=== PATIENT | male | born 1990 | race Caucasian/White ===

== ENCOUNTER 2024-10-28 14:53 | Outpatient (AMB) | payer OTHER, MEDICAID, SELFPAY ==
--- NOTE | 2024-10-28 14:54 | A.OFFPC_ITS ---
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 Care Intake Note: new patient to establish care Cupola Patcher Required: No Allergies No Known Allergies Allergy (Verified 10/28/24 15:17) Medication List - Last Reconciled 10/28/24 by Sylvia Kumar, DEALER SALES MANAGER-BC blood-glucose sensor (Dexcom G7 Sensor device) As directed celecoxib mg PO BID jqpzwozfhvw-fxgzommiru-fnnbcqn 100-50-75 mg(d) /150 mg (n) (Trikafta) ea PO ergocalciferol (vitamin D2) (Vitamin D2) PO QWEEK insulin aspart U-100 (Novolog U-100 Insulin aspart) subcut idbbdu-uuhaxiac-wlklonn 24,000-76,000 -120,000 unit (Creon) 5 caps PO TID bc-pu-ulkl-FA-vit Q-bylt-frU47 22.5 mg-400 mcg -500 mcg-10 mg (DEKAs Bariatric) tabs PO DAILY ursodiol mg PO BID Tobacco use date assessed: 10/28/24 Dental Screening Dental Screen Date: 10/28/24 Did you have a dental visit in the last 12 months?: No Did you have a dental problem in the last 6 months where you did not have access to dental care?: No Was dental information given to patient?: No HPI HPI Comments History of Present Illness Details 34 y/o M IDDM, Vit D def, MDD, Cystic Fi brosis, pancreatic exocrine deficiency, cholestatic liver disease, erectile dysfunction d/t arterial insufficiency, OA bilat hands, nasal polyps with recurrent sinusitis Surgery: Sinus and nasal polypectomy in 2018 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 He will ask for a repeat at next visit November. MDD: was on escitalopram stopped ran out and wondered if was causing memory issues. Stopped in August. Feels happier. Mild anxiety and irritability. Unsure if any impact on memory. HTN: at home 152/90 , not on agents; no chest pain. Numbness in pinky and ring finger on L started 5 years ago. Sx come and go. R hand dominant Jock itch - 2019, using OTC powders. Not using non-medicated powder; persistent jock itch history concurrent with previous athlete's foot, with inter-partner symptomology (UTIs). ROS: - Neurological: Reports memory decline o jalen several years. - Cardiovascular: Reports consistent hig h blood pressure. - Neuromuscular: Reports intermittent nu mbness in right-hand fingers. - Dermatological: Reports persistent anthony k itch. - Urinary: Reports partner?s UTIs post-i ntercourse. Results: a1c 7.2% Exam Awake alert NAD RRR LS CTAB LUE neurovasc intact, replication of sx in ring and pinky finger when L arm pulled behind torso and w/ compression over elbow. Tinea noted to bilat feet R>L Mood and affect appropriate Neuro exam w/o deficit Discussion I discussed the possibility of memory impairment being tied to untreated sleep apnea given the family history and presented stress factors. A sleep study referral was advised to provide clarity to be done by CF clinic. For his blood pressure readings, I introduced the prospect of commencing antihypertensive therapy, contingent on laboratory outcomes to verify renal function health. Regarding hand numbness, I recommended occupational therapy to alleviate possible neural compression; declined at this time. On dermatological concerns, including jock itch with potential athlete?s foot interaction, clotrimazole?s multifocal application was elaborated. A continuation of healthy lifestyle adaptations was advocated, supplemented by follow-up plans to monitor thorough assessment results. A&P 1. Memory Complaints: I advised that a s leep study may elucidate memory impairment causes, considering potentially untreated sleep apnea and ensuing chronicity. Labs will also cover thyroid activity and essential vitamin levels. 2. Hypertension: We concluded that prima ry intervention for hypertension via lisinopril awaits supporting lab findings. This modality offers dual function in hypertension control and nephroprotection. 3. L finger Numbness. This primary appro ach facilitates conservative management requirements prior to progressive escalation. 4. Jock Itch (Tinea Cruris): Courses for ongoing jock itch were communicated, focusing on treating confirmed fungal origin via clotrimazole application. Follo w-up will evaluate response. 5. 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 Total time spent caring for the patient today was 50 minutes. This includes time spent before the visit reviewing the chart, time spent during the visit, and time spent after the visit on documentation, reviewing laboratory results, diagnostic imaging, medications, performing a medically necessary evaluation, counseling on diagnoses, care coordination, ordering appropriate tests, ordering appropriate medications, review of tests performed by other providers, reporting test results with the patient, communication with other healthcare providers. [facility] Medical History (Updated 10/28/24 @ 18:[address] [facility]) Anxiety and depression Arthritis Diabetes Lung infection Sinusitis Surgical History (Updated 10/28/24 @ 15:13 by Dwayne Mcconnell MA) H/O sinus surgery History of colonoscopy (~1999) Family History (Updated 10/28/24 @ 15:15 by Dwayne Mcconnell MA) Mother HTN (hypertension) Father HTN (hypertension) Maternal Grandfather HTN (hypertension) Paternal Grandfather HTN (hypertension) Substance abuse Sister HTN (hypertension) Maternal Grandmother Diabetes Social History (Updated 10/28/24 @ 15:11 by Dwayne Mcconnell MA) Household Members: None Both parents involved: No Caregiver staying overnight: No Housing: House Are you a primary rn urgent care to a significant other at home: No Do you presently have visiting nurse or other home services: No 75 years or older and lives alone: No Alcohol intake: current Alcohol intake frequency: a few times a month Patient Tobacco Use Status: Never used Tobacco e-Cigarette/Vaping Use: Never Used Second Hand Smoke Exposure: No Current occupational status: employed 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 1. Little interest or pleasure in doing things: not at all 2. Feeling down, depressed, or hopeless: not at all 3. Trouble falling or staying asleep, or sleeping too much: several days 4. Feeling tired or having little energy: several days 5. Poor appetite or overeating: not at all 6. Feeling bad about yourself - or that you are a failure or have let yourself or your family down: not at all 7. Trouble concentrating on things, such as reading the newspaper or watching television: not at all 8. Moving or speaking so slowly that other people could have noticed. Or the opposite - being so fidgety or restless that you have been moving around a lot more than usual: not at all 9. Thoughts that you would be better off or of hurting yourself in some way: not at all Total score: 2 Depression Screening Interpretation: Negative Depression Screening Done: Yes 47891 - PHQ-9 Billing: Yes Source: Developed by Drs. Chucho Ratliff, Xochitl Pedraza, García Whitman and colleagues, with an educational katey from [employer]. Thrive Questionnaire Date Thrive assessed: 10/28/24 I am a: Patient What is your living situation today?: I have a steady place to live Within the past 12 months, did the food you bought not last and you didn't have the money to get more?: Sometimes True Within the past 12 months, did you worry whether your food would run out before you got money to buy more?: Sometimes True Do you have trouble paying for medicines?: Yes Do you have trouble getting transportation to medical appointments?: No Do you have trouble paying your heating and electricity bill?: Yes Do you have trouble taking care of your child, family member or friend?: No Do you have trouble with day-to-day activities such as bathing, preparing meals, shopping, managing finances, etc.?: No Are you currently unemployed and looking for a job?: No Are you interested in more education?: No Please select the resources that you would like help with: None Currently or been in a relationship where the following occur: No concerns reported THRIVE Score: 3 AUDIT C Alcohol Use Questionnaire (AUDIT-C) 1. How often do you have a drink containing alcohol?: Monthly or less 2. How many drinks containing alcohol do you have on a typical day when you are drinking?: 3 or 4 3. How often do you have six or more drinks on one occasion?: Less than monthly Total Score: 3 Score Reviewed/Action Taken: Yes ELIJAH-7 AMB Questionnaire ELIJAH-7 Date ELIJAH - 7 assessed: 10/28/24 Feeling nervous, anxious, or on edge: 1 = Several days Not being able to stop or control worryin = Several days Worrying too much about different things: 1 = Several days Trouble relaxin = Several days Being so restless that it is hard to sit still: 0 = Not at all Becoming easily annoyed or irritable: 1 = Several days Feeling afraid as if something awful might happen: 1 = Several days Total ELIJAH-7 score (0-4 normal; 5-9 mild; 10-14 moderate; 15-21 severe): 6 Source: Developed by Drs. Chucho Ratliff, Xochitl Pedraza, García Whitman and colleagues, with an educational katey from [employer]. ELIJAH-7 Assessment Billing ELJIAH-7 Assessment Tool: ELIJAH-7 Assessment 72808 Physical exam (Primary Care) Vital Signs: Last Vital Signs Temp 97.4 F 10/28/24 15:06 Pulse 80 10/28/24 15:40 Resp 13 10/28/24 15:06 BP 126/86 10/28/24 15:40 Pulse Ox 97 10/28/24 15:06 Oxygen Delivery Method Room Air 10/28/24 15:06 BMI result Body Mass Index 29.0 Tobacco/Smoking Status: Tobacco use Status Tobacco use date assessed 10/28/24 10/28/24 15:08 Patient Tobacco Use Status Never used Tobacco 10/28/24 15:11 e-Cigarette/Vaping Use Never Used 10/28/24 15:11 PHQ-9: PHQ-9 Score PHQ-9: Total score 2 10/28/24 15:33 Depression Screening Interpretation: Negative Thrive Assessment: Date of Thrive Assessment Date Thrive assessed 10/28/24 10/28/24 14:59 Currently or been in a relationship where the following occur: No concerns reported Results AMB Hemoglobin A1c AMB Hemoglobin A1c 7.2 % Last Edit by Dwayne Mcconnell MA on 10/28/24 15:18 Results Reviewed Results Reviewed: Laboratory Last Values Hgb A1c (Clinic) 7.2 % (4.0-6.0) H 10/28/24 15:04 Coding Level of Care Code New Pt Level 4 (98439) Complex EM visit Add On G2211 Diagnoses Type 1 diabetes mellitus with complication E10.8 Mild episode of recurrent major depressive disorder F33.0 Major depression episode severity: mild Vitamin D deficiency E55.9 Cystic fibrosis E84.9 Cholestatic liver disease K83.1 Erectile dysfunction due to arterial disease I77.9; N52.1 Pancreatic atrophy K86.89 Tinea pedis of both feet B35.3 Laterality: bilateral Tinea cruris B35.6 Hypertension due to endocrine disorder I15.2 Hypertension type: secondary to endocrine disorders 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: left Subjective memory complaints R41.89 Additional Codes ELIJAH-7 Assessment Billing - ELIJAH-7 Assessment Tool: ELIJAH-7 Assessment 62789 ([id number]) PHQ-9 - 36332 - PHQ-9 Billing: Yes ([id number]) Assessment & Plan Assessment & Plan (1) Type 1 diabetes mellitus with complication: Code(s): E10.8 - Type 1 diabetes mellitus with unspecified complications Category: Medical (2) MDD (major depressive disorder), recurrent episode: Code(s): F33.9 - Major depressive disorder, recurrent, unspecified Category: Medical Qualifiers: Major depression episode severity: mild Qualified Code(s): F33.0 - Major depressive disorder, recurrent, mild (3) Vitamin D deficiency: Code(s): E55.9 - Vitamin D deficiency, unspecified Category: Medical (4) Cystic fibrosis: Code(s): E84.9 - Cystic fibrosis, unspecified Category: Medical (5) Cholestatic liver disease: Code(s): K83.1 - Obstruction of bile duct Category: Medical (6) Erectile dysfunction due to arterial disease: Code(s): I77.9 - Disorder of arteries and arterioles, unspecified; N52.1 - Erectile dysfunction due to diseases classified elsewhere Category: Medical (7) Pancreatic atrophy: Comment: exocrine deficiency requires creon with meals and snacks managed by GI Code(s): K86.89 - Other specified diseases of pancreas Category: Medical (8) Tinea pedis: Code(s): B35.3 - Tinea pedis Category: Medical Qualifiers: Laterality: bilateral Qualified Code(s): B35.3 - Tinea pedis (9) Tinea cruris: Code(s): B35.6 - Tinea cruris Category: Medical (10) HTN (hypertension): Code(s): I10 - Essential (primary) hypertension Category: Medical Qualifiers: Hypertension type: secondary to endocrine disorders Qualified Code(s): I15.2 - Hypertension secondary to endocrine disorders (11) Ulnar nerve entrapment: Code(s): G56.20 - Lesion of ulnar nerve, unspecified upper limb Category: Medical Qualifiers: Laterality: left Qualified Code(s): G56.22 - Lesion of ulnar nerve, left upper limb (12) Subjective memory complaints: Code(s): R41.89 - Other symptoms and signs involving cognitive functions and awareness Category: Medical Plan . Orders: Orders AMB Hemoglobin A1c Today Z13.9 - Encounter for screening, unspecified Microalbumin, Random (w Creat) Today E10.8 - Type 1 diabetes mellitus with unspecified complications, E55.9 - Vitamin D deficiency, unspecified, E84.9 - Cystic fibrosis, unspecified, K83.1 - Obstruction of bile duct Comprehensive Met. Panel Today E10.8 - Type 1 diabetes mellitus with u nspecified complications, E55.9 - Vitamin D deficiency, unspecified, E84.9 - Cystic fibrosis, unspecified, K83.1 - Obstruction of bile duct Lipid Panel Today E10.8 - Type 1 diabetes mellitus with unspecified complications, E55.9 - Vitamin D deficiency, unspecified, E84.9 - Cystic fibrosis, unspecified, K83.1 - Obstruction of bile duct TSH reflex Free T4 Today E10.8 - Type 1 diabetes mellitus with unspecified complications, E55.9 - Vitamin D deficiency, unspecified, E84.9 - Cystic fibrosis, unspecified, K83.1 - Obstruction of bile duct Vitamin B12 and Folate Today E10.8 - Type 1 diabetes mellitus with unspecified complications, E55.9 - Vitamin D deficiency, unspecified, E84.9 - Cystic fibrosis, unspecified, K83.1 - Obstruction of bile duct Vitamin D 25-OH Total Today E10.8 - Type 1 diabetes mellitus with unspecified complications, E55.9 - Vitamin D deficiency, unspecified, E84.9 - Cystic fibrosis, unspecified, K83.1 - Obstruction of bile duct Complete Blood Count no Diff Today E10.8 - Type 1 diabetes mellitus with unspecified complications, E55.9 - Vitamin D deficiency, unspecified, E84.9 - Cystic fibrosis, unspecified, K83.1 - Obstruction of bile duct Medications: New clotrimazole 1% 1 appl topical BID 4 weeks 45 grams 5RF Patient Instructions: - Schedule and complete your sleep study as planned. - Use clotrimazole cream on your feet and groin as directed and ensure regular use. - Monitor your blood pressure at home and log results for review. - Consider occupational therapy for hand numbness relief. - Continue your healthy lifestyle, encompassing dietary vigilance and regular physical exercise. - Consult ophthalmology for diabetic eye care before November this year. - Verify Tdap vaccination status at your upcoming CF clinic visit. Walk-In Care (Urgent Care): We Make it Easy Walk-in for urgent medical issues such as: ? Seasonal Allergies ? Insect Bites ? Cough ? Diarrhea ? Acute Asthma Attacks ? Back, Knee or Joint Pain ? Ear Infection ? Fever without a Rash ? Headaches ? Nausea ? [place] [facility], Rash or Skin Irritation ? Sore Throat ? Sports Physicals ? Vomiting Most insurances are accepted. Patients do not need to be part of the [facility] to seek care at the walk-in clinic. Locations [facility] [address], [place] [address] ? [phone] [facility] [place] provides services to ages 18 and over. Open Saturday-Saturday: 8 a.m. to 5 p.m. and Saturday: 9 a.m. to 3 p.m.* *Hours may vary due to staffing availability. To confirm Walk-In Care hours in [place], please call [phone]. [address] [facility], [place] [address] ? [phone] [facility] in [place] provides services to ages 12 and over. Open Saturday-Saturday: 8 a.m. to 5 p.m. Hours may vary due to staffing availability. To confirm Walk-In Care hours in [place], please call [phone]. LABORATORY SERVICES: [facility] ? Primary Location [address] [place] [address] Saturday through Saturday 6:00 AM ? 5:00 PM Saturday 7:00 AM ? 11:00 AM* [phone] The [facility] is centrally located near the front entrance of the [facility] for easy outpatient access. Convenient parking is provided for outpatients. *Hours may vary due to staffing availability. To confirm Laboratory hours for a [place] location, please call [phone]. Offsite Location For your convenience, we offer offsite laboratory draw stations at the following locations: [address] [place] [address] ? [address], [address] Saturday through Saturday 7:30 AM ? 1:00 PM* [phone] *Hours may vary due to staffing availability. To confirm Laboratory hours for any location, please call [phone]. [place] ? [address] Saturday through Saturday 6:00 AM ? 3:30 PM* Saturday 6:30 AM ? 3 PM* [phone] *Hours may vary due to staffing availability. To confirm Laboratory hours for any location, please call [phone] [place] [address] Saturday through Saturday 7:30 AM ? 4:00 PM* [phone] *Hours may vary due to staffing availability. To confirm Laboratory hours for any location, please call [phone] [place] [address] Saturday through 9:00 AM ? 4:00 PM* *Hours may vary due to staffing availability. To confirm Laboratory hours for any location, please call [phone]. Appointments are not necessary. Walk-ins are welcome. Like all the departments throughout the [facility], our Lab undergoes frequent reviews to ensure the quality and accuracy of test results, and our staff takes special pride in its status as a nationally accredited facility. Patient Portal: ONE PATIENT. ONE RECORD. BETTER CARE. [facility] has a fully integrated, cutting- edge mobile electronic health information system that has revolutionized the way we care for our patients and manage our organization. This system improves communication and coordination enabling us to provide safe, higher-quality care, and an overall positive experience for staff and patients. Our first priority, as always, is to deliver the highest quality care possible. The system is running in the background supporting that priority. This portal is for all [facility] services and practices. If you are experiencing any technical difficulties with enrolling or logging into the Patient Portal please complete the [facility] Patient Portal Technical Support Form. [facility] now offers a new secure on-line interactive tool for patients to review their health information ? ?Patient Portal. This interactive web portal will enable patients and their families to take an active role in their care by providing easy, secure access to their health information via the internet. The Patient Portal provides patients with instant access to their health information, including laboratory results, medications, allergies, demographic information, visit history, and more. In addition to managing their own care, parents and health care proxies with authorized consent will appreciate the ability to access the records of those individuals for whom they provide care. Please note: if you wish to gain access (Proxy) to another patient?s portal, you will be required to come to the Medical Records Department in person at [facility]. Both the patient giving proxy access and the proxy will need to provide photo identification and complete the appropriate authorization. The Patient Portal also allows track their appointments online. The [facility] Patient Portal also saves patients time by allowing them to submit updates to their demographic and contact information prior to their visits. Portal email notifications will also alert patients to any new activity on their portal, such as test results and new appointments. In order to initially enroll in the [facility] Patient Portal, you will need to enter some required information including the following: * your [facility] Medical Record number * your personal home email address * name * date of Please note: In order to enroll in the [facility] Patient Portal, we need to have your email address on file in your electronic medical record. ?The email address needs to be specific for one person (yourself) in order for your Portal enrollment to be successful. ?You can update your email address in person with our Registration staff when you are registering for a hospital visit. ?Otherwise, you will need to come to the Health Information Management (Medical Records) Department at [facility]. ?We are open from Saturday ? Saturday from 7:30 a.m. ? 4:30 p.m. ?You will be required to present a photo id. Once you have successfully enrolled in the Patient Portal, you will receive a one-time user id and password for the Portal, sent to your email address. ?This will allow you to log into the Patient Portal within 99 hrs and reset your own logon id and password, and define personal security questions. ?Once your permanent login and password have been set, you can log into the [facility] Patient Portal at any time via the blue button above or from the Portal Logon button on any page of the [facility] website. [facility] and [facility] encourage all of our patients to enroll in Patient Portal as it presents a valuable opportunity for patients and their families to actively participate in their care and stay healthy Welcome to [facility]. ?We look forward to working with you.
[2024-10-28 15:06] VITALS: BP 128/70; PULSE 109; RESP 13; TEMP 36.3; O2SAT 97; BMI 29.0
[2024-10-28 15:40] VITALS: BP 126/86; PULSE 80
== END 2024-10-28 15:47 | disposition home or self-care (01) ==
LOC: HO.HMCFM 14:53
PROVIDERS: PCP Nurse Practitioner Family; Visit Provider Nurse Practitioner Family
DX: E10.8 Type 1 diabetes mellitus with unspecified complications (principal); F33.0 Major depressive disorder, recurrent, mild; E84.9 Cystic fibrosis, unspecified; K83.1 Obstruction of bile duct; I77.9 Disorder of arteries and arterioles, unspecified; E55.9 Vitamin D deficiency, unspecified; N52.1 Erectile dysfunction due to diseases classified elsewhere; K86.89 Other specified diseases of pancreas; B35.3 Tinea pedis; B35.6 Tinea cruris; I15.2 Hypertension secondary to endocrine disorders; G56.22 Lesion of ulnar nerve, left upper limb

== ENCOUNTER → 2024-10-28 14:53 | Outpatient (BNVA) | payer OTHER, MEDICAID, SELFPAY | PROVIDERS: PCP Nurse Practitioner Family; Visit Provider Nurse Practitioner Family | DX: E10.8 Type 1 diabetes mellitus with unspecified complications (principal); F33.0 Major depressive disorder, recurrent, mild; E55.9 Vitamin D deficiency, unspecified; E84.9 Cystic fibrosis, unspecified; K83.1 Obstruction of bile duct; I77.9 Disorder of arteries and arterioles, unspecified; N52.1 Erectile dysfunction due to diseases classified elsewhere; K86.89 Other specified diseases of pancreas; B35.3 Tinea pedis; B35.6 Tinea cruris; I15.2 Hypertension secondary to endocrine disorders; G56.22 Lesion of ulnar nerve, left upper limb; R41.89 Other symptoms and signs involving cognitive functions and awareness | CPT/HCPCS: 83036; 96127 ==

== ENCOUNTER 2024-10-29 06:15 | Outpatient (REF) | payer OTHER, SELFPAY ==
[2024-10-29 10:07] LABS: Hematocrit 44.9 % (42.0-52.0); Hemoglobin 15.4 g/dl (14.0-18.0); Mean Corpuscular HGB Conc 34.3 g/dl (31.0-36.0); Mean Corpuscular Hemoglobin 31.4 pg (27.0-33.0); Mean Corpuscular Volume 91.6 fL (80.0-98.0); Mean Platelet Volume 11.1 fL (9.4-12.4); Platelet Count 312 X10*3/uL (160-400); Red Cell Distribution Width 12.4 % (11.0-16.0); White Blood Count 7.2 X10*3/uL (4.8-10.8)
[2024-10-29 10:47] LABS: Alanine Aminotransferase 44 U/L (0-40); Albumin Level 3.6 g/dL (3.5-5.0); Alkaline Phosphatase 255 U/L (39-117); Anion Gap 9 (12-20); Aspartate Amino Transferase 43 U/L (5-37); Bilirubin Total 0.6 mg/dL (0.0-1.0); Blood Urea Nitrogen 21 mg/dL (9-16); Calcium 8.7 mg/dL (8.4-10.2); Carbon Dioxide 29 mmol/L (22-29); Chloride 108 mmol/L (96-108); Cholesterol 153 mg/dL (<200); Estimated Glomerular Filt Rate > 60; Glucose Random 160 mg/dL (60-115); HDL Cholesterol 32 mg/dL (>40); LDL Cholesterol Calculated 107 mg/dL (<100); Potassium 4.3 mmol/L (3.3-5.1); Sodium 142 mmol/L (135-145); TSH reflex Free T4 1.58 uIU/mL (0.32-4.0); Total Protein 6.8 g/dL (6.5-8.0); Triglycerides 74 mg/dL (<150); Vitamin D 25-OH Total 26.6 ng/mL (>30)
[2024-10-29 10:51] LABS: Folate 10.8 ng/mL (> or = 4.0); Vitamin B12 680 pg/mL (200-900)
[2024-10-29 11:05] LABS: Creatinine Urine 216.45 mg/dL; Microalbum/Creatinine Ratio Ur 2.7 ug/mg cr (<30)
== END 2024-10-29 06:16 | disposition home or self-care (01) ==
LOC: HO.HMGCLDS 06:15
PROVIDERS: PCP Nurse Practitioner Family; Visit Provider Nurse Practitioner Family
DX: K83.1 Obstruction of bile duct (principal); E84.9 Cystic fibrosis, unspecified; E10.8 Type 1 diabetes mellitus with unspecified complications; E55.9 Vitamin D deficiency, unspecified
CPT/HCPCS: 36415; 80053; 80061; 82043; 82306; 82570; 82607; 82746; 84443; 85027

== ENCOUNTER 2024-11-20 08:21 | Outpatient (AMB) | payer OTHER, SELFPAY ==
--- NOTE | 2024-11-20 08:23 | A.OFFPC_ITS ---
Vital Signs 11/20/24 08:26 11/20/24 08:54 Height 5 ft 4 in Weight 167 lb 2 oz BMI 28.7 BP 134/78 138/60 Blood Pressure Location Rt brachial Rt brachial Position Sitting Sitting Respiration 13 Pulse 68 Pulse Source Pulse Oximeter Temp 97.5 F Temp Source Oral Pulse Oximetry (%) 96 Oxygen Delivery Method Room Air Intake Visit Reasons: 2-3 WEEKS 30 MIN FU HTN AND LABS Intake Note: Follow up on labs and htn Shank Scourer Required: No Allergies No Known Allergies Allergy (Verified 11/20/24 08:47) Medication List - Last Reconciled 11/20/24 by Sylvia Kumar, MACHINE CLOTH MEASURER-BC blood-glucose sensor (Dexcom G7 Sensor device) As directed celecoxib mg PO BID clotrimazole 1% 1 appl topical BID 4 weeks tnrcotdjkag-uaxojsofxm-zeufrmw 100-50-75 mg(d) /150 mg (n) (Trikafta) ea PO ergocalciferol (vitamin D2) (Vitamin D2) PO QWEEK insulin aspart U-100 (Novolog U-100 Insulin aspart) subcut czzopi-hirbccbl-tiqbkvt 24,000-76,000 -120,000 unit (Creon) 5 caps PO TID lisinopril 5 mg PO DAILY vs-zd-swnw-FA-vit Z-sgyn-umB14 22.5 mg-400 mcg -500 mcg-10 mg (DEKAs Bariatric) tabs PO DAILY ursodiol mg PO BID Tobacco use date assessed: 11/20/24 Dental Screening Dental Screen Date: 11/20/24 Did you have a dental visit in the last 12 months?: Yes Did you have a dental problem in the last 6 months where you did not have access to dental care?: No Was dental information given to patient?: Patient has dentist HPI HPI Comments History of Present Illness Details 34 y/o M IDDM, Vit D def, MDD, Cystic Fi brosis, pancreatic exocrine deficiency, cholestatic liver disease, erectile dysfunction d/t arterial insufficiency, OA bilat hands, nasal polyps with recurrent sinusitis Surgery: Sinus and nasal polypectomy in 2018 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; 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; 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 Family hx: Mom and mUncle psoriasis, Grandfather: Sleep apnea, Father: Sleep apnea, Grandmother: Thyroid irradiation; Paternal grandmother old age 2024 Health Maintenance: Colon 1999 Tdap will ask CF clinic and update as needed Flu UTD Fall 2023 Pneumonia 2023 Specialists Pulm 08/2024 CT of chest in 1 year, RTO 3mo Dr Lee Rheum Dr Dickson Bledsoe ENT Dr Edith Alexandercaleb [facility] wears glasses [employer] [place] Fall 2023 negative retinopathy Counselor History of Present Illness - The patient is a 34-year-old male pres enting with a follow-up on lab results and blood pressure recheck. - Diagnosed with Essential Hypertension and started on Lisinopril 5 mg once daily at the last office visit, the patient reports occasional monitoring with lower readings noted primarily post-work activities. - An exacerbation of Cystic Fibrosis occ urred following exposure, managed initially with Bactrim. - Chronic Liver Disease associated with CF, managed with ursodiol, and a recent ultrasound highlighting fatty liver. Patient reports past alcohol use occasionally modulates liver enzyme levels. Recent evaluation by a GI confirms normal liver stiffness measurements within a normal range. - Vitamin D deficiency persists - chroni c; on vit d supplement - Hyperlipidemia managed conservatively, LDL and other lipid panels documented. Exam Awake alert NAD RRR LS CTAB Mood and affect appropriate Neuro exam w/o deficit Results - Labs: Normal CBC, normal electrolytes, normal renal function. Random glucose 160, AST 43, ALT 44, ALK PHOS 255, LDL 107, Total Cholesterol 153, HDL 32, Vitamin D 26.6. - Tests and Diagnostics: Liver ultrasoun d shows fatty liver; liver stiffness measurements in normal parameters; no radiological or echo studies explicitly mentioned. Discussion Notes I discussed with the patient the current management and surveillance of his condition, particularly regarding his Essential Hypertension. The patient is encouraged to continue monitoring his blood pressure intermittently and report any notable trends or elevations. We reviewed the management of the recent CF exacerbation and importance of adherence to airway clearance protocols, including the return to the use of a nebulizer, as managed by CF clinic. The significance of the liver findings was highlighted, reinforcing that current evaluations indicate fatty liver, managed by GI. I reiterated signs and symptoms that warrant reevaluation and scheduled a follow-up for blood pressure monitoring aligned with specialized adjunct care. Anticipatory guidance was provided for vitamin D deficiency management, though specifics around supplementation were deferred for further specialty consultation as needed. Assessment and Plan 1. Essential Hypertension Continue Lisinopril 5 mg once daily. The patient advised to monitor blood pressure frequently and report any significant variations or increases. 2. Cystic Fibrosis Exacerbation Managed with a course of Bactrim and reinstated nebulizer use. Patient advised to adhere to airway clearance and monitor for any recurrence of symptoms. 3. Chronic Liver Disease related to CF Continuation of ursodiol as appropriate. Liver stiffness measurements reviewed and remain in the normal range. No acute interventions necessary. 4. Low Vitamin D Level Noted as chronic and monitored. On Vit D 5. Hyperlipidemia Continue observing dietary and exercise recommendations. No immediate pharmacotherapeutic intervention planned. Patient Instructions - Continue taking Lisinopril 5 mg once d aily. - Monitor blood pressure at home using y our machine and report any changes. - Continue airway clearance techniques a nd nebulizer use as advised by CF clinic. - Follow the dietary and lifestyle recom mendations to manage cholesterol. - Report any new or worsening symptoms p romptly. - Cont care w/ care team - RTO Mar CPE, sooner PRN Consent Patient was informed and verbally consented to the use of an ambient scribe for clinic note documentation during this visit. Total time spent caring for the patient today was 30 minutes. This includes time spent before the visit reviewing the chart, time spent during the visit, and time spent after the visit on documentation, reviewing laboratory results, diagnostic imaging, medications, performing a medically necessary evaluation, counseling on diagnoses, care coordination, ordering appropriate tests, ordering appropriate medications, review of tests performed by other providers, reporting test results with the patient, communication with other healthcare providers. [facility] Medical History (Updated 11/20/24 @ 09:[address] [facility]) Anxiety and depression Arthritis Diabetes Lung infection Sinusitis Surgical History (Updated 10/28/24 @ 15:13 by Dwayne Mcconnell MA) H/O sinus surgery History of colonoscopy (~1999) Family History (Updated 10/28/24 @ 15:15 by Dwayne Mcconnell MA) Mother HTN (hypertension) Father HTN (hypertension) Maternal Grandfather HTN (hypertension) Paternal Grandfather HTN (hypertension) Substance abuse Sister HTN (hypertension) Maternal Grandmother Diabetes Social History (Updated 10/28/24 @ 15:11 by Dwayne Mcconnell MA) Household Members: None Both parents involved: No Caregiver staying overnight: No Housing: House Are you a primary direct care worker to a significant other at home: No Do you presently have visiting nurse or other home services: No 75 years or older and lives alone: No Alcohol intake: current Alcohol intake frequency: a few times a month Patient Tobacco Use Status: Never used Tobacco e-Cigarette/Vaping Use: Never Used Second Hand Smoke Exposure: No Current occupational status: employed 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 1. Little interest or pleasure in doing things: not at all 2. Feeling down, depressed, or hopeless: not at all 3. Trouble falling or staying asleep, or sleeping too much: not at all 4. Feeling tired or having little energy: not at all 5. Poor appetite or overeating: not at all 6. Feeling bad about yourself - or that you are a failure or have let yourself or your family down: not at all 7. Trouble concentrating on things, such as reading the newspaper or watching television: not at all 8. Moving or speaking so slowly that other people could have noticed. Or the opposite - being so fidgety or restless that you have been moving around a lot more than usual: not at all 9. Thoughts that you would be better off or of hurting yourself in some way: not at all Total score: 0 Depression Screening Interpretation: Negative Depression Screening Done: Yes 37251 - PHQ-9 Billing: Yes Source: Developed by Drs. Chucho Ratliff, Xochitl Pedraza, García Whitman and colleagues, with an educational katey from [employer]. Thrive Questionnaire Date Thrive assessed: 11/20/24 I am a: Patient What is your living situation today?: I have a steady place to live Within the past 12 months, did the food you bought not last and you didn't have the money to get more?: Sometimes True Within the past 12 months, did you worry whether your food would run out before you got money to buy more?: Sometimes True Do you have trouble paying for medicines?: Yes Do you have trouble getting transportation to medical appointments?: No Do you have trouble paying your heating and electricity bill?: Yes Do you have trouble taking care of your child, family member or friend?: No Do you have trouble with day-to-day activities such as bathing, preparing meals, shopping, managing finances, etc.?: No Are you currently unemployed and looking for a job?: No Are you interested in more education?: No Please select the resources that you would like help with: None Currently or been in a relationship where the following occur: No concerns reported THRIVE Score: 3 ELIJAH-7 AMB Questionnaire ELIJAH-7 Date ELIJAH - 7 assessed: 11/20/24 Feeling nervous, anxious, or on edge: 0 = Not at all Not being able to stop or control worryin = Not at all Worrying too much about different things: 0 = Not at all Trouble relaxin = Not at all Being so restless that it is hard to sit still: 0 = Not at all Becoming easily annoyed or irritable: 0 = Not at all Feeling afraid as if something awful might happen: 0 = Not at all Total ELIJAH-7 score (0-4 normal; 5-9 mild; 10-14 moderate; 15-21 severe): 0 Source: Developed by Drs. Chucho Ratliff, Xochitl Pedraza, García Whitman and colleagues, with an educational katey from [employer]. ELIJAH-7 Assessment Billing ELIJAH-7 Assessment Tool: ELIJAH-7 Assessment 99391 Physical exam (Primary Care) Vital Signs: Last Vital Signs Temp 97.5 F 11/20/24 08:26 Pulse 68 11/20/24 08:26 Resp 13 11/20/24 08:26 BP 138/60 11/20/24 08:54 Pulse Ox 96 11/20/24 08:26 Oxygen Delivery Method Room Air 11/20/24 08:26 BMI result Body Mass Index 28.7 Tobacco/Smoking Status: Tobacco use Status Tobacco use date assessed 11/20/24 11/20/24 08:28 Patient Tobacco Use Status Never used Tobacco 11/20/24 08:28 e-Cigarette/Vaping Use Never Used 11/20/24 08:28 PHQ-9: PHQ-9 Score PHQ-9: Total score 0 11/20/24 08:48 Depression Screening Interpretation: Negative Thrive Assessment: Date of Thrive Assessment Date Thrive assessed 11/20/24 11/20/24 08:28 Currently or been in a relationship where the following occur: No concerns reported Coding Level of Care Code Est Pt Level 4 (76788) Complex EM visit Add On G2211 Diagnoses Hypertension due to endocrine disorder I15.2 Hypertension type: secondary to endocrine disorders Vitamin D deficiency E55.9 Cystic fibrosis E84.9 Cholestatic liver disease K83.1 Additional Codes ELIJAH-7 Assessment Billing - ELIJAH-7 Assessment Tool: ELIJAH-7 Assessment 91197 ([id number]) PHQ-9 - 57953 - PHQ-9 Billing: Yes ([id number]) Assessment & Plan Assessment & Plan (1) HTN (hypertension): Code(s): I10 - Essential (primary) hypertension Category: Medical Qualifiers: Hypertension type: secondary to endocrine disorders Qualified Code(s): I15.2 - Hypertension secondary to endocrine disorders (2) Vitamin D deficiency: Code(s): E55.9 - Vitamin D deficiency, unspecified Category: Medical (3) Cystic fibrosis: Code(s): E84.9 - Cystic fibrosis, unspecified Category: Medical (4) Cholestatic liver disease: Comment: [place] 11/2024 diffusely echogenic parenchyma, hepatatic steaotosis FFd by GI, Dr Bledsoe, On Urosdiol d/t CF Code(s): K83.1 - Obstruction of bile duct Category: Medical Plan .
[2024-11-20 08:26] VITALS: BP 134/78; PULSE 68; RESP 13; TEMP 36.4; O2SAT 96; BMI 28.7
[2024-11-20 08:54] VITALS: BP 138/60
== END 2024-11-20 08:59 | disposition home or self-care (01) ==
LOC: HO.HMCFM 08:22
PROVIDERS: PCP Nurse Practitioner Family; Visit Provider Nurse Practitioner Family
DX: I15.2 Hypertension secondary to endocrine disorders (principal); E55.9 Vitamin D deficiency, unspecified; E84.9 Cystic fibrosis, unspecified; K83.1 Obstruction of bile duct

== ENCOUNTER → 2024-11-20 08:21 | Outpatient (BNVA) | payer OTHER, SELFPAY | PROVIDERS: PCP Nurse Practitioner Family; Visit Provider Nurse Practitioner Family | DX: I15.2 Hypertension secondary to endocrine disorders (principal); E55.9 Vitamin D deficiency, unspecified; E84.9 Cystic fibrosis, unspecified; K83.1 Obstruction of bile duct; E78.5 Hyperlipidemia, unspecified; Z79.899 Other long term (current) drug therapy | CPT/HCPCS: 96127 ==

== ENCOUNTER 2025-03-11 12:09 | Outpatient (AMB) | payer OTHER, SELFPAY ==
--- NOTE | 2025-03-11 12:10 | MHC.PC.OV ---
Vital Signs 03/11/25 12:17 Height 5 ft 4 in Weight 164 lb 2 oz BMI 28.2 BP 138/86 Blood Pressure Location Lt brachial Position Sitting Respiration 14 Pulse 80 Pulse Source Pulse Oximeter Temp 98.1 F Temp Source Oral Pulse Oximetry (%) 98 Oxygen Delivery Method Room Air Intake Visit Reasons: hurt rotator cuff? soriasis/cpe Intake Note: Physical. Getting CPAP tomorrow. Right arm pain, rotator cuff. Psorasis under right eye and right ear. Scaly dry skin. Attendant Coin Operated Laundry Required: No Allergies No Known Allergies Allergy (Verified 03/11/25 12:53) Medication List - Last Reconciled 03/11/25 by Sylvia Kumar, INSPECTOR AND CLERK-BC blood-glucose sensor (M[employer] Europa G7 Sensor device) As directed celecoxib mg PO BID clotrimazole 1% 1 appl topical BID 4 weeks tbklnubxqwn-gadksgobmj-deitzuo 100-50-75 mg(d) /150 mg (n) (Trikafta) ea PO ergocalciferol (vitamin D2) (Vitamin D2) PO QWEEK insulin aspart U-100 (Novolog U-100 Insulin aspart) subcut yawrwz-xucdygtw-dceicey 24,000-76,000 -120,000 unit (Creon) 5 caps PO TID lisinopril 5 mg PO DAILY zh-xu-qogv-FA-vit [id number]-isU27 22.5 mg-400 mcg -500 mcg-10 mg (DEKAs Bariatric) tabs PO DAILY ursodiol mg PO BID Tobacco use date assessed: 03/11/25 Dental Screening Dental Screen Date: 11/20/24 HPI HPI Comments History of Present Illness Details 35 y/o M IDDM, Vit D def, MDD, Cystic Fibrosis, pancreatic exocrine deficiency, cholestatic liver disease, erectile dysfunction d/t arterial insufficiency, OA bilat hands, nasal polyps with recurrent sinusitis, SEVERO on CPAP ([facility]) Surgery: Sinus and nasal polypectomy in 2018, portacath removed R chest 2022 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; 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; 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 Family hx: Mom and mUncle psoriasis, Grandfather: Sleep apnea, Father: Sleep apnea, Grandmother: Thyroid irradiation; Paternal grandmother old age 2024 Health Maintenance: Colon 1999 Tdap will ask CF clinic and update as needed Flu UTD Fall 2023 Pneumonia 2023 Specialists Pulm 08/2024 CT of chest in 1 year, RTO 3mo Dr Lee Rheum Dr Forman GI Dr Blesdoe ENT Dr Edith Augustin next appt May [facility]o wears glasses [employer] [place] Fall 2023 negative retinopathy Counselor History of Present Illness - The patient is a 35-year-old male presenting for a complete physical exam and multiple health concerns. - Reports right shoulder pain onset in November, associated with exercise, notably worsening with certain movements and no visible swelling or redness. Right hand dominant R shoulder, November, Gym at rest feels better; when reaching overhead and towards his back to reaching has pain Joint did not swell; Denies redness or warmth. R shoulder can feel weak at times d/t pain. No at home remedy w/ relief. - Reports psoriasis like rash/concern with new dry patches under eyelids and ears, with family history. Dry skin; new under eye lid on R side. Inside ear having white flakey skin. - Reports anal fissure causing significant pain, previously managed non-surgically; consulting gastroenterology 05/2025 - Reports erectile dysfunction with better response to Cialis compared to Viagra. - New Dx SEVERO will start CPAP - IDDM managed by endo on CGM, UTD on DM Eye exam - Hypertension under current medication management. At goal - CF stable and managed by specialist - Chronic Liver Disease associated with CF, managed with ursodiol, and a recent ultrasound highlighting fatty liver. - Vitamin D deficiency persists - chronic; on vit d supplement - Hyperlipidemia managed conservatively, LDL and other lipid panels documented. Review of Systems - Musculoskeletal: Reports right shoulder pain. - Integumentary: Reports psoriasis-like dry patches under eyelids and ears. - Gastrointestinal: Reports significant pain from anal fissure. - Neurological: Denies recent surgeries since October visit. - Cardiovascular: Reports hypertension under control. - Genitourinary: Reports erectile dysfunction with Cialis use. Physical Exam General: Well developed, well nourished, in no acute distress. Appears stated age. Head: Normocephalic, atraumatic. Eyes: Pupils are equal, round and reactive to light and accommodation. Conjunctivae are clear. Vision grossly normal. Ears: TMs clear AU, EACS WNL. Right ear has dry, flaky skin externally and in EAC Nose: Patent, without discharge. Neck: Supple, no adenopathy, mild nontender thyromegaly. Breast: Edu on SBE Lungs: Clear to auscultation bilaterally. No rales, rhonchi or wheeze noted. Good air flow in all toure. Heart: Regular rate and rhythm. No murmurs, click, rubs or gallops are noted. Abdomen: Bowel sounds present in all quadrants. The abdomen is soft, nontender, with no masses or organomegaly noted. No hernias are noted. : Deferred. Reviewed ADRY & recommendations Pulses: Peripheral pulses are equal and palpable bilaterally. Extremities: No clubbing, cyanosis nor edema is noted. R arm neurovasc intact; pain w/ Pain with rotation in abduction, elevation, flexion and extension, + lift off test No deformity, erythema or swelling Neurologic: Gait and station normal. Cranial Nerves 2-12 intact. Motor strength grossly symmetrical and intact. No sensory loss. Balance normal. Skin: No ulcers, or lesions noted elsewhere. Turgor is good. Skin color is good. Hair and nails are without abnormalities. Red, dry flakey skin noted to face and in castro Psych: Normal eye contact, affect and mood appropriate, and normal interactions. Patient is alert and appropriate to context. Results - Labs 10/29/24: Normal CBC, normal electrolytes, normal renal function. Random glucose 160, AST 43, ALT 44, ALK PHOS 255, LDL 107, Total Cholesterol 153, HDL 32, Vitamin D 26.6. Discussion Notes I discussed with the patient the likely diagnosis of supraspinatus tendinitis causing right shoulder pain, suggesting the benefit of physical therapy for management. Advised that this condition rarely requires surgical management. We discussed the importance of consulting dermatology given his rash. Discussed use of Cialis for erectile dysfunction, including dosage and administration instructions. Reviewed patient's history of diabetes and hypertension management, advising the patient to maintain regular follow-ups with endocrinology for diabetes management. Emphasized ongoing management of the anal fissure with gastroenterology involvement. Patient was given time to ask questions. All questions were answered to their satisfaction. Assessment and Plan 1. Essential Hypertension Continue Lisinopril 5 mg once daily. The patient advised to monitor blood pressure frequently and report any significant variations or increases. 2. Cystic Fibrosis Cont care w/ specialists 3. Chronic Liver Disease related to CF Continuation of ursodiol as appropriate. Liver stiffness measurements reviewed and remain in the normal range. No acute interventions necessary. 4. Low Vitamin D Level Noted as chronic and monitored. On Vit D 5. Hyperlipidemia Continue observing dietary and exercise recommendations. No immediate pharmacotherapeutic intervention planned. 6. Right shoulder pain - Suspected tendinitis. - Physical therapy initiated. 7. Psoriatic type rash to face - Dermatology referral for psoriasis. 8 Erectile dysfunction - Cialis start 10mg QD max 20 mg QD 9. Anal fissure - Gastroenterology consult ongoing. Patient Instructions - Attend physical therapy for shoulder pain. - Follow-up with dermatology for skin - start Cialis as directed. - Consult with gastroenterology for anal fissure. - Monitor blood pressure regularly. - Check A1c with the brush painter. - Continue taking Lisinopril 5 mg once daily. - Monitor blood pressure at home using your machine and report any changes. - Follow the dietary and lifestyle recommendations to manage cholesterol. - Report any new or worsening symptoms promptly. - Cont care w/ care team - RTO Mar CPE, sooner PRN Consent Patient was informed and verbally consented to the use of an ambient scribe for clinic note documentation during this visit. An additional 30 minutes was spent addressing the problem(s) noted at todays visit. This includes time spent before the visit reviewing the chart, time spent during the visit, and time spent after the visit on documentation reviewing laboratory results, diagnostic imaging, medications, performing a medically necessary evaluation, counseling on diagnoses, care coordination, ordering appropriate tests, ordering appropriate medications, review of tests performed by other providers, reporting test results with the patient, communication with other healthcare providers. [facility] Medical History (Updated 03/11/25 @ 16:56 by Sylvia Kumar, [facility]) Anxiety and depression Arthritis Diabetes Lung infection Sinusitis Surgical History H/O sinus surgery History of colonoscopy (~1999) Family History Mother HTN (hypertension) Father HTN (hypertension) Maternal Grandfather HTN (hypertension) Paternal Grandfather HTN (hypertension) Substance abuse Sister HTN (hypertension) Maternal Grandmother Diabetes Social History (Updated 03/11/25 @ 12:20 by ERASMO Jain Household Members: None Both parents involved: No Caregiver staying overnight: No Housing: House Are you a primary home health caregiver to a significant other at home: No Do you presently have visiting nurse or other home services: No 75 years or older and lives alone: No Alcohol intake: current Alcohol intake frequency: a few times a month Patient Tobacco Use Status: Never used Tobacco e-Cigarette/Vaping Use: Never Used Second Hand Smoke Exposure: No Current occupational status: employed 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 Current occupational exposures/hazards: Yes Cognitive needs: No Hearing needs: No Vision needs: Yes (wear glasses) Questionnaire Thrive Questionnaire Date Thrive assessed: 10/28/24 I am a: Patient What is your living situation today?: I have a steady place to live Within the past 12 months, did the food you bought not last and you didn't have the money to get more?: Sometimes True Within the past 12 months, did you worry whether your food would run out before you got money to buy more?: Sometimes True Do you have trouble paying for medicines?: Yes Do you have trouble getting transportation to medical appointments?: No Do you have trouble paying your heating and electricity bill?: Yes Do you have trouble taking care of your child, family member or friend?: No Do you have trouble with day-to-day activities such as bathing, preparing meals, shopping, managing finances, etc.?: No Are you currently unemployed and looking for a job?: No Are you interested in more education?: No Please select the resources that you would like help with: None Currently or been in a relationship where the following occur: No concerns reported THRIVE Score: 3 AUDIT C Alcohol Use Questionnaire (AUDIT-C) 1. How often do you have a drink containing alcohol?: Monthly or less 2. How many drinks containing alcohol do you have on a typical day when you are drinking?: 1 or 2 3. How often do you have six or more drinks on one occasion?: Never Total Score: 1 Score Reviewed/Action Taken: Yes ELIJAH-7 AMB Questionnaire ELIJAH-7 Date ELIJAH - 7 assessed: 11/20/24 Source: Developed by Drs. Chucho Ratliff, Xochitl Pedraza, García Whitman and colleagues, with an educational katey from [employer]. Physical exam (Primary Care) Vital Signs: Last Vital Signs Temp 98.1 F 03/11/25 12:17 Pulse 80 03/11/25 12:17 Resp 14 03/11/25 12:17 BP 138/86 03/11/25 12:17 Pulse Ox 98 03/11/25 12:17 Oxygen Delivery Method Room Air 03/11/25 12:17 BMI result Body Mass Index 28.2 Tobacco/Smoking Status: Tobacco use Status Tobacco use date assessed 03/11/25 03/11/25 12:20 Patient Tobacco Use Status Never used Tobacco 03/11/25 12:20 e-Cigarette/Vaping Use Never Used 03/11/25 12:20 Thrive Assessment: Date of Thrive Assessment Date Thrive assessed 10/28/24 03/11/25 12:20 Currently or been in a relationship where the following occur: No concerns reported Coding Level of Care Code Est Pt Level 4 (37003) Est Pt Prev Care 18-39y(89123) Diagnoses Encounter for general adult medical examination without abnormal findings Z00.00 Psoriasis-like skin disease L98.9 SEVERO on CPAP G47.33 Rectal fissure K60.2 Right supraspinatus tendinitis M75.91 Mild episode of recurrent major depressive disorder F33.0 Major depression episode severity: mild Hypertension due to endocrine disorder I15.2 Hypertension type: secondary to endocrine disorders Type 1 diabetes mellitus with complication E10.8 Vitamin D deficiency E55.9 Cholestatic liver disease K83.1 Pancreatic atrophy K86.89 Erectile dysfunction due to arterial disease I77.9; N52.1 Cystic fibrosis E84.9 Assessment & Plan Assessment & Plan (1) Encounter for general adult medical examination without abnormal findings: Onset Date: 03/11/25 Code(s): Z00.00 - Encounter for general adult medical examination without abnormal findings Category: Medical (2) Psoriasis-like skin disease: Code(s): L98.9 - Disorder of the skin and subcutaneous tissue, unspecified Category: Medical (3) SEVERO on CPAP: Code(s): G47.33 - Obstructive sleep apnea (adult) (pediatric) Category: Medical (4) Rectal fissure: Code(s): K60.2 - Anal fissure, unspecified Category: Medical (5) Right supraspinatus tendinitis: Code(s): M75.91 - Shoulder lesion, unspecified, right shoulder Category: Medical (6) MDD (major depressive disorder), recurrent episode: Code(s): F33.9 - Major depressive disorder, recurrent, unspecified Category: Medical Qualifiers: Major depression episode severity: mild Qualified Code(s): F33.0 - Major depressive disorder, recurrent, mild (7) HTN (hypertension): Code(s): I10 - Essential (primary) hypertension Category: Medical Qualifiers: Hypertension type: secondary to endocrine disorders Qualified Code(s): I15.2 - Hypertension secondary to endocrine disorders (8) Type 1 diabetes mellitus with complication: Code(s): E10.8 - Type 1 diabetes mellitus with unspecified complications Category: Medical (9) Vitamin D deficiency: Code(s): E55.9 - Vitamin D deficiency, unspecified Category: Medical (10) Cholestatic liver disease: Comment: [place] 11/2024 diffusely echogenic parenchyma, hepatatic steaotosis FFd by GI, Dr Bledsoe, On Urosdiol d/t CF Code(s): K83.1 - Obstruction of bile duct Category: Medical (11) Pancreatic atrophy: Comment: exocrine deficiency requires creon with meals and snacks managed by GI Code(s): K86.89 - Other specified diseases of pancreas Category: Medical (12) Erectile dysfunction due to arterial disease: Code(s): I77.9 - Disorder of arteries and arterioles, unspecified; N52.1 - Erectile dysfunction due to diseases classified elsewhere Category: Medical (13) Cystic fibrosis: Code(s): E84.9 - Cystic fibrosis, unspecified Category: Medical Plan . Orders: Orders PT Evaluation and Treatment Today M75.91 - Shoulder lesion, unspecified, right shoulder Referrals Dermatology Referral L98.9 - Disorder of the skin and subcutaneous tissue, unspecified Medications: New tadalafil (Cialis) administer approximately 30min before sexual activity; do not use more than 1 dose per 24hrs 10 mg PO DAILY PRN 90 tabs 2RF sexual activity Refilled lisinopril 5 mg PO DAILY 90 tabs 1RF Patient Instructions: Health screenings for men You should visit your health care provider regularly, even if you feel healthy. The purpose of these visits is to: Screen for medical issues Assess your risk for future medical problems Encourage a healthy lifestyle Update vaccinations and other preventive care services Help you get to know your provider in case of an illness Information Even if you feel fine, you should still see your provider for regular checkups. These visits can help you avoid problems in the future. For example, the only way to find out if you have high blood pressure is to have it checked regularly. High blood sugar and high cholesterol level also may not have any symptoms in the early stages. Simple blood tests can check for these conditions. There are specific times when you should see your provider or receive specific health screenings. The [place] Preventive Services Task Force publishes a list of recommended screenings. Below are screening guidelines for men ages 40 to 64. BLOOD PRESSURE SCREENING Have your blood pressure checked at least once every year. Watch for blood pressure screenings in your area. Ask your provider if you can stop in to have your blood pressure checked. Ask your provider if you need your blood pressure checked more often if: You have diabetes, heart disease, kidney problems, or are overweight or have certain other health conditions You have a first-degree relative with high blood pressure You are Black Your blood pressure top number is from 120 to 129 mm Hg, or the bottom number is from 70 to 79 mm Hg If the top number is 130 mm Hg or greater or the bottom number is 80 mm Hg or greater, this is considered stage 1 hypertension. Schedule an appointment with your provider to learn how you can lower your blood pressure. Effects of age on blood pressure CHOLESTEROL SCREENING Cholesterol screening should begin at age 35 for men with no known risk factors for coronary heart disease. Repeat cholesterol screening should take place: Every 5 years for men with normal cholesterol levels More often if changes occur in lifestyle (including weight gain and diet) More often if you have diabetes, heart disease, kidney problems, or certain other conditions COLORECTAL CANCER SCREENING If you are under age 45, talk to your provider about getting screened. You may need to be screened if you have a strong family history of colon cancer or polyps. Screening may also be considered if you have risk factors such as a history of inflammatory bowel disease or polyps. If you are age 45 to 75, you should be screened for colorectal cancer. There are several screening tests available: A stool-based fecal occult blood (gFOBT) or fecal immunochemical test (FIT) every year A stool sDNA test every 1 to 3 years Flexible sigmoidoscopy every 5 years or every 10 years with stool testing FIT done every year CT colonography (virtual colonoscopy) every 5 years Colonoscopy every 10 years You may need a colonoscopy more often if you have risk factors for colorectal cancer, such as: Ulcerative colitis A personal or family history of colorectal cancer A history of growths in your colon called adenomatous polyps DENTAL EXAM Go to the dentist once or twice every year for an exam and cleaning. Your dentist will evaluate if you have a need for more frequent visits. DIABETES SCREENING All adults who do not have risk factors for diabetes should be screened starting at age 35 and repeated every 3 years. If you have other risk factors for diabetes, such as a first degree relative with diabetes, overweight or obesity, high blood pressure, prediabetes, or a history of heart disease, you may be tested more often. If you are overweight and have other risk factors, such as high blood pressure and are planning to become , screening is recommended. EYE EXAM Have an eye exam every 2 to 4 years ages 40 to 54 and every 1 to 3 years ages 55 to 64. Your provider may recommend more frequent eye exams if you have vision problems or glaucoma risk. Have an eye exam that includes an examination of your retina (back of your eye) at least every year if you have diabetes. IMMUNIZATIONS Commonly needed vaccines include: Flu shot: get one every year COVID-19 vaccine: ask your provider what is best for you Tetanus-diphtheria and acellular pertussis (Tdap) vaccine: have as one of your tetanus-diphtheria vaccines if you did not receive it as an adolescent Tetanus-diphtheria: have a booster (or Tdap) every 10 years Varicella vaccine: receive 2 doses if you never had chickenpox or the varicella vaccine and were born in 1980 or after Hepatitis B vaccine: receive 2, 3, or 4 doses, depending on your exact circumstances, if you did not receive these as a child or adolescent, until age 59 Shingles (herpes zoster) vaccine: at or after age 50 Ask your provider if you should receive other immunizations, especially if you have certain medical conditions, such as diabetes or are at increased risk for some diseases such as pneumonia. INFECTIOUS DISEASE SCREENING Screening for hepatitis C: all adults ages 18 to 79 should get a one-time test for hepatitis C. Screening for human immunodeficiency virus (HIV): all people ages 15 to 65 should get a one-time test for HIV. Depending on your lifestyle and medical history, you may need to be screened for infections such as syphilis, chlamydia, and other infections. LUNG CANCER SCREENING You should have an annual screening for lung cancer with low-dose computed tomography (LDCT) if: You are age 50 to 80 years AND You have a 20 pack-year smoking history AND You currently smoke or have quit within the past 15 years OSTEOPOROSIS SCREENING If you are age 50 to 64 and have risk factors for osteoporosis, you should discuss screening with your provider. Risk factors can include long-term steroid use, low body weight, smoking, heavy alcohol use, having a fracture after age 50, or a family history of hip fracture or osteoporosis. Osteoporosis PHYSICAL EXAM All adults should visit their provider from time to time, even if they are healthy. The purpose of these visits is to: Screen for diseases Assess risk of future medical problems Encourage a healthy lifestyle Update vaccinations and other preventive care services Maintain a relationship with a provider in case of an illness Your height, weight, and body mass index (BMI) should be checked at every exam. During your exam, your provider may ask you about: Depression and anxiety Diet and exercise Alcohol and tobacco use Safety, such as use of seat belts and smoke detectors Your medicines and risk for interactions PROSTATE CANCER SCREENING If you're 55 through 69 years old, before having the test, talk to your provider about the pros and cons of having a PSA test. Ask about: Whether screening decreases your chance of dying from prostate cancer. Whether there is any harm from prostate cancer screening, such as side effects from testing or overtreatment of cancer when discovered. Whether you have a higher risk of prostate cancer than others. If you are age 55 or younger, screening is not generally recommended. You should talk with your provider about if you have a higher risk for prostate cancer. Risk factors include: Having a family history of prostate cancer (especially a brother or father) Being If you choose to be tested, the PSA blood test is repeated over time (yearly or less often), though the best frequency is not known. Prostate examinations are no longer routinely done on men with no symptoms. Prostate cancer SKIN EXAM Your provider may check your skin for signs of skin cancer, especially if you're at high risk. People at high risk include those who have had skin cancer before, have close relatives with skin cancer, or have a weakened immune system. TESTICULAR EXAM The [place] Preventive Services Task Force (USPSTF) now recommends against performing testicular self-exams. Doing testicular self-exams has been shown to have little to no benefit.
[2025-03-11 12:17] VITALS: BP 138/86; PULSE 80; RESP 14; TEMP 36.7; O2SAT 98; BMI 28.2
--- OUTSIDE RECORDS SUMMARY | 2025-03-11 12:32 | XMS_ITS | Clinical Summary ---
Author Organization [facility] Address [address] [facility] [address] [place] [phone] Phone Care Team Providers Care Epic Cupid Analyst Name Role Phone Preston Suarez MD Primary Care Provider Allergies No known active allergies Medications ursodioL (ACTIGALL) 300 mg capsule Take 300 mg by mouth 2 (two) times a day. Active cetirizine (ZYRTEC) 10 MG tablet Take 10 mg by mouth daily as needed. Active pancrelipase, lipase-proteas e-amylase, (CREON) 24,000-76,000 -120,000 unit CpDR Take 48,000 Units by mouth 5 (five) times a day. Active polyethylene glycol (MIRALAX) 17 gram packet Take 17 g by mouth daily as needed (constipation). Active mometasone (NASONEX) 50 mcg/actuation nasal spray 2 sprays by Nasal route daily as needed. Active esomeprazole (NEXIUM) 40 MG capsule Take 40 mg by mouth daily as needed. Active elexacaftor-te zacaftor-ivaca ftor (TRIKAFTA) 100-50-75 mg(d) /150 mg (n) tablet Take by mouth. Take 2 tablets (elexacaftor 100 mg/tezacaftor 50 mg/ivacaftor 75 mg per tablet) orally in the morning and 1 tablet of ivacaftor 150 mg in the evening, approximately 12 hours apart; take with fat-containing food. Avoid foods with grapefruit or [place] oranges. Active sildenafiL (VIAGRA) 100 mg tablet 1/2 -1tab po pre coitus prn 4 tablet 3 0 Active citalopram (CELEXA) 10 MG tablet Take 10 mg by mouth daily. 2 Active naproxen sodium (ALEVE) 220 MG tablet Take 440 mg by mouth daily. Active DEKAS PLUS, FOLIC ACID, 200 mcg-1,000 mcg-10 mg Chew 3 Active VITAMIN D2 1,250 mcg (50,000 unit) capsule Take 1,250 mcg by mouth once a week. 3 Active celecoxib (CELEBREX) 200 MG capsule Take 200 mg by mouth 2 (two) times a day. 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 80 mL 3 5 Active Active Problems Problem Noted Date Diagnosed Date Elevated blood pressure read ing without diagnosis of hypertension 05/12/2024 Assessment & Plan (11/25/2024 4:19 PM EDT): Blood pressure is in good control today, this has been consistent in recent past Consistent activity and weight loss are likely to support healthy blood pressure Assessment & Plan (08/18/2024 10:26 AM EST): Blood pressure is in good control today Assessment & Plan (05/12/2024 12:38 PM EDT): Blood pressure is above goal today, usually in very good control Has follow up scheduled with provider next week If blood pressure remains elevated >130/80 at repeat visits then therapy with ACEi or ARB would be advisable Vitamin D deficiency 03/31/2023 03/31/2023 Vitamin K deficiency 03/31/2023 03/31/2023 Zinc deficiency 03/31/2023 03/31/[address] 07/22/2020 Overview (07/22/2020): Started Tandem X2, Dexcom G6 with CIQ in May 2020 Assessment & Plan (11/25/2024 4:30 PM EDT): We did not adjust insulin pump settings today Edil has historically followed a fairly poor diet overall, though he had made improvements in greatly reducing his regular soda consumption until end of last year when his relationship ended, he is still consuming soda daily but has now started exercising regularly and is also eating better, he continues to bolus insulin more consistently for soda intake and we discussed also being mindful about the food being consumed with his soda, glucose elevations after midday are related to Edil being mindful to cover his soda intake but now that he is eating lunch with this he is advised to also account for the carbohydrates in his food Edil continues to rely autocorrections for bulk of his bolus delivery, nearly 1/2 of his bolus delivery is CIQ mediated, but he is bolusing for soda intake consistently and is more consistent in general with evening mealtime boluses, advised to be more consistent with midday meal boluses as well as noted Edil is encouraged to continue to monitor his CGM patterns and to let us know if he has any questions regarding pump settings We will follow up in 4 and 8 months Assessment & Plan (08/18/2024 10:37 AM EST): New insulin pump setting Time Basal Rates? ICR ISF Target IOB 12am 0.792u/hr 18 40 110mg/dl 2hrs 7am 0.625 15 40 100 5hrs (CIQ) 5pm 0.625 12 40 110 9pm 0.792 15 40 110 110 (CIQ) TOTAL 16.7u/day We adjusted insulin pump settings today as noted above in bold, optimized insulin delivery for afternoon/evening meals/snacks should help improve overall control later in the day Edil has historically followed a fairly poor diet overall, though he had made improvements in greatly reducing his regular soda consumption and increasing water intake until this past fall when a break up led to a return to these bad habits, he is encouraged to work on this and getting more consistent activity Edil continues to rely autocorrections for bulk of his bolus delivery, nearly 1/2 of his bolus delivery is CIQ mediated, but he is bolusing for soda intake consistently and is more consistent in general with mealtime boluses Edil is encouraged to continue to monitor his CGM patterns and to let us know if he has any questions regarding pump settings We will follow up later this in 3-4 months Assessment & Plan (05/12/2024 12:41 PM EDT): Current insulin pump setting Time Basal Rates? ICR ISF Target IOB 12am 0.792u/hr 18 40 110mg/dl 2hrs 7am 0.625 15 40 100 5hrs (CIQ) 9pm 0.792 15 40 110 110 (CIQ) TOTAL 16.7u/day We did not adjust insulin pump settings today, Edil is dosing for meals more frequently than in the past though still not consistently encouraged to do his best with this Edil has historically followed a fairly poor diet overall, though he has made improvements in greatly reducing his regular soda consumption and increasing water intake Edil continues to rely autocorrections for bulk of his bolus delivery, nearly 1/2 of his bolus delivery is CIQ mediated Edil is encouraged to continue to monitor his CGM patterns and to let us know if he has any questions regarding pump settings We will follow up later this in 3-4 months Assessment & Plan (12/16/2023 6:42 PM EDT): New insulin pump setting Time Basal Rates? ICR ISF Target IOB 12am 0.792u/hr 18 40 110mg/dl 2hrs 7am 0.625 15 40 100 5hrs (CIQ) 9pm 0.792 15 40 110 110 (CIQ) TOTAL 16.7u/day We adjusted carb ratios today as noted, this should improve glucose control after carb intake Edil is advised to calculate carb counts as accurately as he can and to be consistent with taking insulin prior to eating, he has done reasonably well with this, we discussed strategies to help him account for his morning hot chocolate as well Edil continues to follow a fairly poor diet overall, he continues daily regular soda consumption which he does not plan on changing, generally doing well dosing for this, we discussed adding in more vegetables and fruits to his intake Edil continues to rely autocorrections for bulk of his bolus delivery, nearly 1/2 of his bolus delivery is CIQ mediated Edil is encouraged to continue to monitor his CGM patterns and to let us know if he has any questions regarding pump settings We will follow up later this in 4 months Assessment & Plan (07/19/2023 4:52 PM EST): Current insulin pump setting Time Basal Rates? ICR ISF Target IOB 12am 0.792u/hr 22 40 110mg/dl 2hrs 7am 0.625 18 40 100 5hrs (CIQ) 9pm 0.792 18 40 110 110 (CIQ) TOTAL 16.7u/day We did not adjust insulin pump settings today Advised to try to calculate carb counts as accurately as he can and to be consistent with taking insulin prior to eating, this should help stabilize glucose patterns Edil continues to follow a suboptimal diet overall, he continues daily regular soda consumption which he does not plan on changing, generally doing well dosing for this except at evening meal Edil continues to rely autocorrections but less heavily that in the past due to more consistent dosing Edil is encouraged to continue to monitor his CGM patterns and to let us know if he has any questions regarding pump settings We will follow up later this in 4 months Assessment & Plan (03/31/2023 5:18 PM EDT): Current insulin pump setting Time Basal Rates? ICR ISF Target IOB 12am 0.792u/hr 22 40 110mg/dl 2hrs 7am 0.625 18 40 100 5hrs (CIQ) 9pm 0.792 18 40 110 110 (CIQ) TOTAL 16.7u/day We did not adjust insulin pump settings today, previously we adjusted the I:C ratio to help with prandial excursions however based on CGM data Edil is still not utilizing manual bolus features very much We revisited the likely benefit of consistent insulin dosing prior to meals and snacks, there remains variability in after meal glucose, much of this is due to Edil's high carb diet Edil continues to rely heavily on autocorrections delivered by his insulin pump Edil is encouraged to continue to monitor his CGM patterns and to let us know if he has any questions regarding pump settings We will follow up later this in 4 months Assessment & Plan (12/02/2022 10:04 AM EDT): New insulin pump setting Time Basal Rates? ICR ISF Target IOB 12am 0.792u/hr 22 40 110mg/dl 2hrs 7am 0.625 18 40 100 5hrs (CIQ) 9pm 0.792 18 40 110 110 (CIQ) TOTAL 16.7u/day We adjusted carb ratios during the day to help reduce prandial elevations We revisited importance of consistent insulin dosing prior to meals and snacks, there remains variability in after meal glucose, much of this is due to Edil's high carb diet and likely some inaccuracies in dosing, carb ratio adjustments should be helpful Edil continues to rely heavily on autocorrections delivered by his insulin pump Edil is encouraged to continue to monitor his CGM patterns and to let us know if he has any questions regarding pump settings We will follow up later this in the summer Assessment & Plan (08/06/2022 11:20 AM EST): Current insulin pump setting Time Basal Rates? ICR ISF Target IOB 12am 0.792u/hr 22 40 110mg/dl 2hrs 7am 0.625 22 40 100 5hrs (CIQ) 9pm 0.792 22 40 110 110 (CIQ) TOTAL 16.7u/day We did not adjust insulin pump settings today We revisited consideration for carb ratio adjustment and more importantly for Edil to take insulin more consistently for meals and snacks, there remains variability in after meal blood sugars and his overall control is likely most vulnerable to these missteps in dosing Edil continues to rely heavily on autocorrections delivered by his insulin pump Edil is encouraged to continue to monitor his CGM patterns and to let us know if he has any questions regarding pump settings Assessment & Plan (01/25/2022 11:15 PM EDT): Current insulin pump setting Time Basal Rates? ICR ISF Target IOB 12am 0.792u/hr 22 40 110mg/dl 2hrs 7am 0.625 22 40 100 5hrs (CIQ) 9pm 0.792 22 40 110 110 (CIQ) TOTAL 16.7u/day We did not adjust insulin pump settings today We had discussed adjusted carb ratios to help Edil take his insulin for meals more consistently but Edil has not been using these, he does not dose insulin for meals/snacks, there remains variability in after meal blood sugars We raised the ISF at last visit so that autocorrections which occur many times per day and manual corrections when needed are not contributing to hypoglycemia risk, this seems to be working well Assessment & Plan (07/10/2021 5:22 PM EST): New insulin pump setting Time Basal Rates? ICR ISF Target IOB 12am 0.792u/hr 22 40 110mg/dl 2hrs 7am 0.625 22 40 110 5hrs (CIQ) 9pm 0.792 22 40 110 TOTAL 16.67u/day We adjusted the daytime basal rate lower to reduce risk for hypoglycemia We discussed adjusted carb ratios to help Edil take his insulin for meals more consistently which will ultimately reduce his glucose variability We also raised the ISF so that autocorrections which occur many times per day and manual corrections when needed are not contributing to hypoglycemia risk Assessment & Plan (07/22/2020 9:43 AM EST): Current insulin pump setting Time Basal Rates? ICR ISF Target IOB 12am 0.792u/hr 15 33 110mg/dl 2hrs 7am 0.70 15 30 100 9pm 0.792 15 30 110 TOTAL 17.72u/day Left hip pain 01/18/2020 Assessment & Plan (01/18/2020 3:59 PM EDT): Fall 3 yrs ago as limitation on rotation ? torn labrum or djd start w xray Very bad pronation wo tendnerness urged tied running shoes Venous insufficiency 01/18/2020 Assessment & Plan (01/18/2020 4:00 PM EDT): L>R x couple months ? Assoc w wgt gain ck urine and watch salt which he never had to do in past Annual physical exam 01/13/2018 Assessment & Plan (01/18/2020 4:01 PM EDT): Doing great w new med COVID affecting sociasl life Assessment & Plan (01/14/2019 10:13 PM EDT): Patient overall doing well did praise him for his job in getting new apartment etc. 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15 Treatment - insulin therapy since diagnosis, on insulin pump therapy and CGMS Assessment & Plan (11/25/2024 4:24 PM EDT): Edil continues to do well on insulin pump therapy with automated insulin delivery, his self management and lifestyle habits had worsened after his relationship ended in July, though Edil is still drinking soda regularly, he is bolusing insulin for soda consistently and is eating more healthfully, he has also started a consistent exercise routine which was just recently interrupted due to illness but he has returned again as of last week He continues to benefit from autocorrections and autobasal insulin adjustments in the background, he is advised to continue to bolus for meals/snacks as consistently as he can We again revisited overall improvement in glucose control as well as likely success with weight loss efforts if he were to give up soda consuption We did not adjust insulin pump settings today, Edil is advised to monitor patterns as he continues to exercise as his needs may change with weight loss or general improvement in insulin sensitivity with regular exercise CGM indicates worsened overall glucose average and TIR compared to our last visit, TIR remains below goal Edil's weight has been stable since last fall, BMI ~28 Edil is advised to contact me with any questions or concerns, we will meet again in 4 months and in 8 months Assessment & Plan (08/18/2024 10:34 AM EST): Edil continues to do well on insulin pump therapy with automated insulin delivery, his self management and lifestyle habits have worsened a bit since the fall after his relationship ended; Edil is back to drinking soda regularly and is advised to try to reduce this, he is bolusing insulin for soda consistently which is an improvement compared to the past He continues to benefit from autocorrections and autobasal insulin adjustments in the background, he continues to bolus for higher carb options more regularly, primarily during his most consistent eating window in late afternoon through evening We discussed adjustment of I:C ratio at this time to help optimize overall control as noted CGM indicates slightly worsened overall glucose average and TIR compared to our last visit, TIR remains below goal Edil has lost about 7lb since spring, weight has been stable since fall, BMI ~28 Edil is encouraged to work on being more consistently physically active and to try to eat a healthy diet; we discussed trying to find a most sustainable time for consistent gym attendance and focus on optimizing strength We did adjusted insulin pump infusion settings today as noted, particularly focusing on most appropriate carb coverage later in the day; Edil is aware that if his exercise routine is most likely to be in the afternoon after work then his insulin sensitivity will be affected by this Edil is advised to contact me with any questions or concerns, we will meet again in 3-4 months Assessment & Plan (05/12/2024 12:46 PM EDT): Edil continues to do well on insulin pump therapy with automated insulin delivery, his self management and lifestyle habits have historically contributed to less than optimal control particularly as his CF is treated and he is metabolically healthier He continues to benefit from autocorrections and autobasal insulin adjustments in the background however he is bolusing for higher carb options more regularly, this is primarily for his high intake of soda CGM indicates improved TIR compared to our last visit, though this remains below goal; his A1c is also improved Edil's weight has been increasing due to less metabolically induced caloric wasting, he has lost about 6lb since our last visit in December, BMI is now <29 Edil is encouraged to continue to be physically active and work on eating a healthydiet, his reduction in regular soda intake is commendable, this will certainly help his overall glucose control as well as weight management We did not adjust insulin pump infusion settings today Edil is advised to contact me with any questions or concerns, we will meet again in 3-4 months Assessment & Plan (12/16/2023 6:39 PM EDT): Edil continues to do well on insulin pump therapy with automated insulin delivery, however his self management and lifestyle habits are still contributing to less than optimal control He continues to benefit from autocorrections and autobasal insulin adjustments in the background however he is bolusing for higher carb options more regularly, this is primarily for his high intake of soda CGM indicates worsening in TIR compared to our last visit and his A1c is also worsened Edil's weight has again increased, initial weight gain was part of an overall improvement in his health after start of novel CF therapy and improved glucose control, BMI is now 29; his previous hypermetabolic state due to active CF made it necessary to consume high amounts of calories without regard for too much weight gain, in fact insulin therapy was helping with weight maintenance in some ways though Edil's overall glucose control was poor at the time, with new therapy he has a much more efficient metabolism but he has not adjusted his eating patterns significantly, this has led to weight gain and certainly increase in insulin requirement; Edil is again encouraged to try to be more physically active and improve his diet which is quite poor, both of these will certainly help his overall glucose control as well as weight management We discussed optimized insulin to carb ratios as noted, this should help glucose control after intake of soda and higher carb foods; advised to prebolus for usual hot chocolate intake in the morning and run extended bolus since morning soda and hot chocolate intake occur in the same hour to 90 min time every morning but Edil often forgets to bolus for the hot chocolate Edil is advised to contact me with any questions or concerns, we will meet again in 4 months Assessment & Plan (07/19/2023 4:56 PM EST): Edil continues to do well on insulin pump therapy with automated insulin delivery, his self management habits though much improved compared to the past are still contributing to less than optimal control He continues to benefit from autocorrections and autobasal insulin adjustments in the background however to a lesser degree than in the past, he has been more consistent with mealtime bolusing than in the past but this is still rare overall CGM indicates improvement in TIR compared to the past Jennis weight has increased as his health has improved with novel CF therapy and improved glucose control, BMI is ~27-28; his previous hypermetabolic state due to active CF made it necessary to consume high amounts of calories without regard for too much weight gain, in fact insulin therapy was helping with weight maintenance in some ways though Jennis overall glucose control was poor at the time, with new therapy he has a much more efficient metabolism but he has not adjusted his eating patterns significantly, this has led to weight gain and certainly increase in insulin requirement; Edil is again encouraged to try to be more physically active which will certainly continue to help his overall glucose control as well as weight management Edil is advised to contact me with any questions or concerns, we will meet again in 4 months Assessment & Plan (03/31/2023 5:17 PM EDT): Edil continues to do well on insulin pump therapy with automated insulin delivery however his self management habits continue to result in less than ideal control He does rely heavily on autocorrections and autobasal insulin adjustments in the background, he has been more consistent with mealtime bolusing than in the past but this is still rare overall CGM indicates improvement in TIR compared to the past Jennis weight has been stable since late 2021, BMI is just over ideal goal, his previous hypermetabolic state due to active CF made it necessary to consume high amounts of calories without regard for too much weight gain, in fact insulin therapy was helping with weight maintenance in some ways though Jennis overall glucose control was poor at the time, with new therapy he has a much more efficient metabolism but he has not adjusted his eating patterns significantly, this has led to weight gain and certainly increase in insulin requirement; Edil is encouraged to try to be more physically active which will certainly continue to help his overall glucose control as well as weight management Edil is advised to contact me with any questions or concerns, we will meet again in 4 months Assessment & Plan (12/02/2022 9:59 AM EDT): Edil continues to do well on insulin pump therapy with automated insulin delivery however some of his self management habits continue to result in less than ideal control He does rely heavily on autocorrections and autobasal insulin adjustments in the background, he has been more consistent with mealtime bolusing than in the past We adjusted insulin pump settings today as noted, Edil is encouraged to try out his new carb ratios, these will provide more insulin at meals/snacks during the day and should help reduce hyperglycemic spikes Edil's weight has been stable since our last visit, BMI is just over ideal goal, his previous hypermetabolic state due to active CF made it necessary to consume high amounts of calories without regard for too much weight gain, in fact insulin therapy was helping with weight maintenance in some ways though Edil's overall glucose control was poor at the time, with new therapy he has a much more efficient metabolism but he has not adjusted his eating patterns significantly, this has led to weight gain and certainly increase in insulin requirement; Edil has been motivated to be more active which is helpful in many respects including improving insulin sensitivity and with weight management Edil is advised to contact me with any questions or concerns, we will meet again in 4 months Assessment & Plan (08/06/2022 11:27 AM EST): Edil continues to do well on insulin pump therapy with automated insulin delivery however some of his self management habits do result in less than ideal control He does rely heavily on autocorrections and autobasal insulin adjustments in the background, he is still very inconsistent about bolusing insulin for meals/snacks, generally omits these We did not adjust insulin pump settings today, Edil is encouraged to try out his settings as they are and if meal boluses or corrections do not seem to meet his needs then we can optimize these Edil's overall insulin requirement is higher due to weight gain, we discussed that in the past his hypermetabolic state due to active CF made it necessary to consume high amounts of calories without regard for too much weight gain, in fact insulin therapy was helping with weight maintenance in some ways though Jennis overall glucose control was poor at the time, he is now more efficiently holding on to his calories since the CF therapy he is currently on has dramatically improved his condition, however he has not adjusted his eating patterns and he does not plan to, this has led to weight gain and certainly increase in insulin requirement; Edil is motivated to be more active which will be helpful in many respects including improving insulin sensitivity and also with weight management Edil is advised to contact me with any questions or concerns, we will meet again in 4 months Assessment & Plan (01/25/2022 11:19 PM EDT): Edil continues to do well on insulin pump therapy with automated insulin delivery He does rely on autocorrections and autobasal insulin adjustments in the background, he tends not to take insulin for meals/snacks Edil has expressed concerns in the past that his carb ratio always makes him low so we adjusted these at our last visit but he has not utilized these, current ISF appears to be working well Edil is encouraged to try to bolus for carbs more consistently to see how this works for him, this is likely to be most needed when Edil has regular soda Edil is advised to contact me with any questions or concerns, we will meet again in 6 months Assessment & Plan (07/10/2021 5:26 PM EST): Edil began insulin pump therapy one year ago and has been doing very well on this since then, we reviewed data today and it appears that Edil is causing much variability in his readings by not bolusing for meals and treating drops in glucose, even when not hypoglycemic, with regular soda Edil has concerns that his carb ratio always makes him low so we adjusted this, he also tends to drift low with frequent autocorrections so we adjusted the ISF as well as daytime basal Edil is encouraged to try to bolus for carbs more consistently to see how this works for him Up to date on flu vaccine and COVID vaccine series and booster Weight gain has been likely a combination of improved glucose control over the past year combined with continued poor eating habits, and also very likely less caloric expenditure as his current CF therapy has improved his overall condition, encouraged to do his best with healthy lifestyle Edil is advised to contact me with any questions or concerns Assessment & Plan (07/22/2020 9:42 AM EST): Edil began insulin pump therapy at end of May and has been doing very well on this since then, we only had data from early to mid June to review since Edil's pump did not upload more recent data however he reports that his patterns have been stable, there is a large percentage of readings in target range and minimal hypoglycemia We did not make adjustments to insulin infusion settings today Edil has been started on Viagara for possible diabetes related ED, he has not had a chance to evaluate the effectiveness of this yet Up to date on flu vaccine Weight gain has been likely a combination of improved glucose management in the more recent past but also very likely less caloric expenditure as his CF therapy has improved his overall condition, encouraged to do his best with healthy lifestyle Edil is advised to contact me with any questions or concerns Assessment & Plan (01/21/2020 4:48 PM EDT): Using CGM consistently which has helped Edil improve his overall glucose control Lifestyle remains poor with little exercise and relatively poor diet, this has now led to weight gain since his underlying CF is much better controlled; encouraged to try to eat a healthier diet, lower salt will likely also help to reduce fluid overload; encouraged to move more which will also help to improve circulation and reduce swelling; both will help optimize weight We discussed optimizing I:C ratio to help reduce prandial spike after first meal of the day, will continue current ISF We discussed insulin pump therapy in particular the new systems which have closed loop capability integrated with CGM, Edil is interested in the Tandem X2 with Dexcom Edil is encouraged to contact me with any questions or concerns, he will return to meet with our educator staff for pump start Assessment & Plan (01/18/2020 3:58 PM EDT): Overdue poor control visi tnext week w endo urged more frq injections Tends to graze eat No exercise Assessment & Plan (07/16/2019 4:00 PM EST): Poor control again likely due to more defensive insulin dosing to avoid hypoglycemia A1c had improved significantly with use of CGM Plans to exercise more since lung function has improved, this may also help improve glucose control and may reduce insulin requirement Edil will not make any dietary changes Up to date on flu vaccine Encouraged to call/message through the portal with any questions or concerns Assessment & Plan (01/14/2019 10:14 PM EDT): Patient doing well with diabetes of not due for another A1c had come down to 9. He loves the Dexcom symptoms system is does not at the check last 10 days continue to follow-up with Dr. Dallas Assessment & Plan (12/08/2018 12:31 PM EDT): Very high variability in blood sugars, elevated blood sugars most consistent particularly in afternoon/evening which correlates to Edil's grazing period, we discussed considerations for insulin dosing at this time We discussed adjustment in I:C ratios later in the day vs ensuring that he is actually dosing for all carbs eaten, may need to prebolus for a set amount of carbs and keep track of what he is eating redosing insulin as needed Now on basal and bolus insulins only, off premix, this should in general reduce risk for hypoglycemia Would likely do better with healthier diet in general, seeing RD in CF clinic regularly More active now, we discussed appropriate shoe wear/insoles for Edil's flat feet Encouraged to call with any questions or concerns Assessment & Plan (01/24/2018 12:15 PM EDT): Edil's glucose patterns in the morning indicate fairly good control with blood sugars mostly in the lower portion of target range, his A1c indicates that later day blood sugars are likely very high Edil reports increased hypoglycemia when he uses premix insulin at midday, we discussed lowering the dose of this to prevent this Ideally a regimen of basal and bolus insulins would reduce risk of hypoglycemia however Edil uses premix insulin since he tends to forget Novolog or it's difficult to dose as he grazes through the afternoon We discussed insulin pump therapy, insulin pump + CGM and stand alone CGM; current stand alone CGM options allow for consistent access to glucose pattern information without need for fingerstick blood sugar calibrations, this would allow Edil to assess his patterns more readily and adjust insulin doses as needed Advised to return to meet with our certified adaptive physical educator staff to discuss CGM technology further and proceed with order if interested Encouraged to call with questions Assessment & Plan (01/14/2018 11:53 AM EDT): Referral needed for Dr. Dallas endocrinology as we do not records fr [facility] Cystic fibrosis 06/29/2017 Assessment & Plan (01/20/2020 7:56 AM EDT): Doing great w new med Assessment & Plan (01/14/2019 10:14 PM EDT): Frequent respiratory symptoms overall is done well this year is a music to date gets sinus symptoms also and has diabetes as expected. Is being seen at the fibrosis clinic in [facility] Assessment & Plan (01/14/2018 11:51 AM EDT): Doing well immunizations up-to-date sees a pediatric pulmonary clinic at [facility] periodic use of antibiotics both intravenous and by mouth for flareups rn long term care current use of insulin 06/29/2017 Assessment & Plan (01/21/2020 4:55 PM EDT): We discussed insulin pump therapy particularly the systems integrated with CGM in automated delivery We discussed adjustment in I:C ratio to help improve prandial control Will continue current dose of basal insulin for now Assessment & Plan (07/16/2019 3:56 PM EST): Continues basal bolus MDI, but more guarded in dosing due to not monitoring, lack of access to CGM in recent past We are working on resuming normal CGM supplies for Edil, after he starts back on Dexcom he is encouraged to reach out if he feels there are any issues with patterns or overall control and we can help Edil adjust insulin doses as needed Assessment & Plan (01/14/2018 11:51 AM EDT): Uses long-acting insulin and then [id number] for lunchhen regular ins day Immunizations Immunization Administration Dates Next Due DT 12/19/2000 DTaP 12/15/1993 [id number] FORMULATION 05/31/2009 Hepatitis B, unspecified formulation 03/05/1999 INFLUENZA, SPLIT VIRUS, TRIV ALENT W/ PRESERVATIVE IM 05/14/2022,05/31/2021,06/13/2020,05/27,04/28/2018,07/04/2017,06/26/2016 ,05/24/2015,05/31/2014,04/13/2013,06/06,06/06/2010,05/09/2009 Influenza Quadrivalent MDCK w/Preservative IM 04/28/2018 Influenza, whole 05/10/2008 MMR 05/02/1990 Meningococcal MCV4P 01/28/2007 Pneumococcal conjugate PCV13 04/14/2015 Pneumococcal polysaccharide PPSV23 03/27/2011 Tdap 03/27/2011 Family History Medical History Relation Comments No Known Problems Brother Hypertension Father Diabetes mellitus Maternal Grandmother Cystic fibrosis Maternal Uncle at age 35 Diabetes mellitus Maternal Uncle Hyperlipidemia Mother Hypertension Mother Psoriasis Mother Cardiovascular disease Paternal Grandfather Relation Status Comments Brother Father Alive Maternal Grandmother Maternal Uncle Mother Paternal Grandfather Social History Tobacco Use Types Packs/Day Years Used Date Smoking Tobacco: Never Passive Smoke Exposure: Never Smokeless Tobacco: Never Tobacco Cessation:Counseling Given: Not Answered Alcohol Use Standard Drinks/Week Comments Yes 0 (1 standard drink = 0.6 oz pur e alcohol) socially Education Answer Date Recorded Are you interested in more education? Not on hong e 11/29/2022 Are you concerned about learning? Not on file 11/29/2022 No 11/29/2022 No 11/29/2022 Digital Access Answer Date Recorded No 12/26/2022 No 12/26/2022 Reliable internet access at home? Not on file 12/26/2022 Device with a working camera? Not on file Sex and Gender Information Value Date Recorded Sex Assigned at Not on file Legal Sex Male 10:26 PM EDT Gender Identity Not on file Sexual Orientation Not on file Occupation Industry Job Start Date Job End Date it [employer] Not on file Not on file Not on file Last Filed Vital Signs Vital Sign Reading Time Taken Comments Blood Pressure 124/80 11/24/2024 2:37 PM EDT Pulse 81 11/24/2024 2:37 PM EDT Temperature 36.1 C (97 F) 12/16/2023 3:26 PM EDT Respiratory Rate 18 04/21/2019 2:39 PM EDT Oxygen Saturation 97% 12/16/2023 3:26 PM EDT Inhaled Oxygen Concentration - - Weight 75.8 kg (167 lb) 11/24/2024 2:37 PM EDT Height 162.6 cm (5' 4.02 ) 11/24/2024 2:37 PM ED T Body Mass Index 28.65 11/24/2024 2:37 PM EDT Plan of Treatment Upcoming Encounters Date Type Department Care Team (Late st Contact Info) Description 03/23/2025 3:40 PM EDT Office Visit [facility] [address] [place] [id number] Verona Dallas MD [address] [place] [address], [address] [place] [id number] 07/12/2025 4:20 PM EST Office Visit [facility] [address] [place] [address] Verona Dallas MD [address] [place] [id number] Health Maintenance Due Date Last Done Comments POTASSIUM LEVEL 1989 HEPATITIS C SCREENING 2007 LIPID PANEL 2007 DEPRESSION SCREENING 01/17/2021 01/18/2020 Adult Td,Tdap Booster 03/27/2021 03/27/2011 CREATININE LEVEL 07/22/2021 07/22/2020 COVID-19 VACCINE ( season) 2024 06/09/2021, 10/27/2020, 09/29/2020 HEMOGLOBIN A1C 02/15/2025 08/18/2024, 10/03/2024, 12/16/2023, Additional history exists DIABETIC EYE EXAM 03/04/2025 03/04/2024, 04/20/2019 BLOOD PRESSURE 05/26/2025 11/24/2024 PNEUMOCOCCAL VACCINES (0-49 years) (3 of 3 - PCV20 or PCV21) 2039 04/14/2015, 03/27/2011 MENINGOCOCCAL VACCINES (ACWY) Completed 01/28/2007 HIV ONE-TIME SCREENING (18-65 YEARS) Completed 01/13/2018 SMOKING STATUS SCREENING (Once After 26 Yrs) Completed 12/16/2023 HEPATITIS A VACCINES Aged Out No long er eligible based on patient's age to complete this topic HIB VACCINES Aged Out No longer eligi ble based on patient's age to complete this topic MENINGOCOCCAL VACCINES (B) Aged Out N o longer eligible based on patient's age to complete this topic Medical Devices Not on file Procedures Procedure Name Priority Date/Time Associated Diagnosis Comments POCT HEMOGLOBIN A1C Routine 08/18/2024 9 :52 AM EST 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 Insulin pump in place Elevated blood pressure reading without diagnosis of hypertension rn long term care current use of insulin DIABETES EYE EXAM FOR RESULT ENTRY ONLY Routine 03/04/2024 from Last 3 Months or Most Recently Relevant to Health Maintenance Results * (ABNORMAL) POCT Hemoglobin A1c (08/18/2024 9:52 AM EST) Hemoglobin A1c 7.8(A) 4.2 - 5.8 % Other 08/18/2024 9:52 AM EST Verona Dallas MD POINT OF CARE TEST ORDERABLES F inal Result * DIABETES EYE EXAM FOR RESULT ENTRY ONLY (03/04/2024) EYE EXAM SEE SCANNED REPORT Tiffany Provider HEALTH MAINTENANCE Final Result from Last 3 Months or Most Recently Relevant to Health Maintenance Insurance [facility]MO [facility] HMO Care Teams Epic Cupid Analyst Relationship Specialty Start Date End Date Preston Suarez MD [address] [place] [id number] PCP - General Family Medicine 05/12/24 Additional Source Comments The information contained in this document represents components of the legal health record. It is not the complete legal health record.[facility]
== END 2025-03-11 13:28 | disposition home or self-care (01) ==
LOC: HO.HMCFM 12:09
PROVIDERS: PCP Nurse Practitioner Family; Visit Provider Nurse Practitioner Family
DX: Z00.00 Encounter for general adult medical examination without abnormal findings (principal); E10.8 Type 1 diabetes mellitus with unspecified complications; K83.1 Obstruction of bile duct; E84.9 Cystic fibrosis, unspecified; L98.9 Disorder of the skin and subcutaneous tissue, unspecified; G47.33 Obstructive sleep apnea (adult) (pediatric); K60.2 Anal fissure, unspecified; M75.91 Shoulder lesion, unspecified, right shoulder; F33.0 Major depressive disorder, recurrent, mild; I15.2 Hypertension secondary to endocrine disorders; E55.9 Vitamin D deficiency, unspecified; K86.89 Other specified diseases of pancreas